=== PATIENT | male | born 1970 | race Caucasian/White ===

== ENCOUNTER 2018-09-03 07:40 | Observation (INO) ==
[2018-09-03 07:49] VITALS: BMI 32.5
--- NOTE | 2018-09-03 07:50 | DR.AMS ---
HPI - Time Seen Time seen: 07:49 - PCP Primary Care Physician: UNKNOWN - Complaint Cheif Complaint Doctors Comments: Patient brought in by EMS with the complaint of slow heart rate with altered mental status after taking Symboxone and smoking meth. Patient states he has never done symboxone and a girl told him he should try it and it and he took a quarter of a stripe of symboxone. States he smokes meth 2-3 time week. States he is a patient of Dr. Russell and he was not trying to kill himself. He denies tobacco or alcohol use. He denies chest pain, SOB, nausea or vomiting. He denies head trauma or LOC. EMS states the patient was i n bed when they arrived. States patient wakes up with nitroglycerin and is alert and talkative. Chief Complaint:: EMS RESPONDS TO A CALL FOR C/O LOW HEART RATE, AMS. EMS STATES THAT PT. HAD TAKEN A SUBOXONE AND HAD ADMITTED TO SMOKING METHAMPHETAMINE, LAST USE @ 0200. PT. IS LETHARGIC BUT WILL RESPOND TO VERBAL STIMULI. SPEECH IS MUMBLED. PT. STATES HE USES METH EVERY "NOW AND THEN." - Reviewed Nurses Notes Reviewed: Yes - Source History Provided: Patient, EMS - Mode of Arrival Mode of Arrival: EMS - Timing Onset of Chief Complaint: 09/03/18 Came On: Gradually Symptoms: Unchanged Symptom Onset: Unknown - Duration Duration: Constant Duration: Hours - Quality Quality: Decreased Alertness - Severity Severity: Moderate - Context Recent: Drug Use History Of: None - Associated Signs and Symptoms Associated Signs and Symptoms: Change in Behavior PMH - PMH Past Medical History: No Past Surgical History: No Surgical History: Unknown - Family History History of Family Medical Conditions: No - Social History Does patient currently use any type of tobacco product: Yes Have you used tobacco products in the last 12 months: Yes Type of Tobacco Use: Cigarettes Does any household member use tobacco: Yes Alcohol Use: Other Do you use any recreational Drugs:: Yes Lives With: Significant Other Lives Where: Home - infectious screening In the last 2 months have you had wt loss of >10#?: NO Have you had fever, night sweats or hemotysis?: No Have you traveled outside the country in the last 6 months?: No Isolation: Standard ROS - Review of Systems Constitutional: No Symptoms Reported Eyes: No Symptoms Reported ENTM: No Symptoms Reported Respiratoy: No Symptoms Reported Cardiovascular: No Symptoms Reported. negative: See HPI, Chest Pain, Edema, Palpitations, Syncope, Cyanosis, Skin Mottling, Other Gastrointestinal/Abdominal: No Symptoms Reported. negative: See HPI, Abdominal Pain, Constipation, Diarrhea, Nausea, Vomiting, Food Intolerance, Other Genitourinary: No Symptoms Reported. negative: See HPI, Discharge, Dysuria, Frequency, Hematuria, Pain, Bleeding, Other Neurological: No Symptoms Reported Musculoskeletal: No Symptoms Reported Integumentary: No Symptoms Reported Hematologic/Lymphatic: No Symptoms Reported. negative: See HPI, Anemia, Blood Clots, Easy Bleeding, Easy Bruising, Swollen Glands, Lymphadenopathy, Other Endocrine: No Symptoms Reported Psychiatric: No Symptoms Reported. negative: See HPI, Anxiety, Depression, Hallucinations, Excessive crying, Suicidal, Other PE - General Limitations: No Limitations General Appearance: In No Apparent Distress, Lethargic - Head Head Exam: Normal Inspection, Atraumatic, Normocephalic Head Exam Physical: negative: Laceration, Abrasion, Contusion, Hematoma, Raccoon Eyes, Barlow's Sign, Tenderness of Temporal Artery, CSF Rhinorrhea, CSF Otorrhea, Other - Eyes Eye exam: PERRL, EOMI, Miosis. negative: Normal Appearance, Scleral Icterus, Conjunctival Injection, Nystagmus, Mydrasis, Periorbital Swelling, Periorbital Tenderness, Other Pupils: Regular, Round: Left, Reactive: Left (slight), Size: Bilateral (pin point), Size: Bilateral (pin point) - ENT ENT Exam: Normal Exam, Normal Oropharynx, Normal External Ear Exam, Mucous Membranes Moist, TM's Normal Bilaterally External Ear Exam: Normal External Inspection TM/Canal Exam: Bilateral Normal Nose Exam: Normal Nose Exam Mouth Exam: Normal Inspection. negative: Drooling, Trismus, Lip Swelling, Tongue Elevation, Tongue Swelling, Laceration, Other Throat Exam: Normal Inspection. negative: Tonsillar Erythema, Tonsillomegaly, Tonsillar Exudate, R Peritonsillar Mass, L Peritonsillar Mass, Muffled Voice, Other - Neck Neck Exam: Normal Inspection, Full ROM, Trachea Midline. negative: Tenderness, Meningismus, Lymphadenopathy, Thyromegaly, Other - Chest Chest Inspection: Normal Inspection, Symmetric Chest Wall Rise - Respiratory Respiratory Exam: Normal Lung Sounds Bilat Respiratory Exam: Bilateral Clear to Auscultation - Cardiovascular Cardiovascular Exam: Regular Rate, Normal Rhythm, Bradycardia, Normal Heart Sounds - Abdominal Exam Abdominal Exam: Normal Inspection, Normal Bowel Sounds, Soft. negative: Distention, Tenderness, Guarding, Rebound, Rigidity, Dimnished Bowel Sounds, Hyperactive Bowel Sounds, Hypoactive Bowel Sounds, Organomegaly, Trauma, Incision, Ascites, Mass, Bruit, Pulsatile Mass, Hernia, Other Abdominal Tenderness: negative: RUQ, RLQ, LUQ, LLQ, Epigastrium, Suprapubic, Diffuse, Mild, Moderate, Severe, Other - Extremities Extremities Exam: Normal Inspection, Full ROM, Normal Capillary Refill. negative: Tenderness, Edema, Joint Swelling, Calf Tenderness, Other - Back Back Exam: Normal Inspection, Full ROM. negative: Tenderness, (R) CVA Tenderness, (L) CVA Tenderness, Muscle Spasm, Paraspinal Tenderness, Vertebral Tenderness, Rashes, (R) Sciatic Notch Tenderness, (L) Sciatic Notch Tendern, (R) Straight Leg Raise, (L) Straight Leg Raise, Other - Neurological Neurological Exam: Oriented X3, CN II-XII Intact, Reflexes Normal. negative: Alert (lethargic), Normal Gait (gait not tested) Patient Oriented To: Person, Place, Time Speech: Fluid Speech Cranial Nerve Exam: EOM Function (II, III, IV, ): Normal, Facial Sensation (V): Normal, Facial Palsy (VII): Normal, Gag reflex (XI): Normal, Spinal Accessory Function (XI): Normal, Tongue Deviation: Normal Cerebellar Function: negative: Normal Gait (gait not tested) Motor Strength - LUE: 5/5 Motor Strength - RUE: 5/5 Motor Strength - LLE: 5/5 Upper Motor Neuron Exam: Babinski Sign: Normal Sensory Exam Upper Extremity: Light Touch: Normal DTR: bicep (L): 2+, bicep (R): 2+, Patellar (L): 2+, patellar (R): 2+ - Psychological Psychiatric Exam: Normal Mood. negative: Normal Affect (patient lethargic), Depressed, Agitated, Homicidal Ideation, Suicidal Ideation Expanded Psychiatric Exam: Poor Eye Contact (patient lethargic) - Skin Skin Exam: Warm, Dry, Intact, Normal Color - Vitals Vital Signs: Temp Pulse Pulse Resp BP BP Pulse Ox 09/03/18 12:22 53 L 10 L 166/89 95 09/03/18 12:00 51 L 13 173/86 95 09/03/18 11:20 53 L 12 166/92 97 09/03/18 11:00 50 L 13 155/80 97 09/03/18 10:00 50 L 16 171/99 99 09/03/18 09:20 51 L 12 168/94 99 09/03/18 09:00 51 L 173/96 09/03/18 08:40 52 L 12 155/96 100 09/03/18 08:05 47 L 17 146/78 96 09/03/18 07:42 97 F L 58 L 25 H 167/90 98 Course - Consultation Called: 12:29 Call Returned: 12:29 (Dr. Barrera to admit) - Education/Counseling Education/Counseling: Patient, Family Educated On: Treatment, Diagnosis, Needs for Follow Up ROR - Labs Reviewed Laboratory Results Reviewed?: Yes (All labs and x-ray results reviewed and discussed with pataient) Result Diagrams: 09/03/18 07:58 09/03/18 07:58 - XRAY XRAY Interpreted by: Radiologist (CXR: No acute cardiopulmonary disease.) - EKG Rate: 49 [place]: Normal Rhythm: SB Block: None Hypertrophy: LVH ST: Normal - Labs Reviewed Laboratory: WBC 7.1 X10^3/uL (3.6-10.0) 09/03/18 07:58 RBC 4.71 X10^6/uL (4.7-6.0) 09/03/18 07:58 Hgb 13.9 g/dL (13.5-18.0) 09/03/18 07:58 Hct 40.7 % (42.0-54.0) L 09/03/18 07:58 MCV 86.4 fL (80.0-100.0) 09/03/18 07:58 MCH 29.5 pg (27.0-34.0) 09/03/18 07:58 MCHC 34.1 g/dL (33.0-35.0) 09/03/18 07:58 RDW 14.5 % (11.6-16.5) 09/03/18 07:58 Plt Count 206 X10^3/uL (150.0-450.0) 09/03/18 07:58 MPV 8.3 fL (7.4-11.0) 09/03/18 07:58 Neut % (Auto) 65.0 % (42.0-75.0) 09/03/18 07:58 Lymph % (Auto) 20.9 % (21.0-51.0) L 09/03/18 07:58 Harper % (Auto) 10.7 % (0.0-13.0) 09/03/18 07:58 Eos % (Auto) 2.7 % (0.9-2.9) 09/03/18 07:58 Baso % (Auto) 0.7 % (0.2-1.0) 09/03/18 07:58 Neut # (Auto) 4.6 x10^3/uL (2.2-4.8) 09/03/18 07:58 Lymph # (Auto) 1.5 X10^3/uL (1.3-2.9) 09/03/18 07:58 Harper # (Auto) 0.8 x10^3/uL (0.3-0.8) 09/03/18 07:58 Eos # (Auto) 0.2 x10^3/uL (0.0-0.2) 09/03/18 07:58 Baso # (Auto) 0.0 X10^3/uL (0.0-0.1) 09/03/18 07:58 Absolute Nucleated RBC 0.0 /100WBC 09/03/18 07:58 INR Target Range - 09/03/18 07:58 INR 0.99 (0.8-1.3) 09/03/18 07:58 APTT 30.8 SECONDS (22.9-36.5) 09/03/18 07:58 PTT Comment - 09/03/18 07:58 D-Dimer < 100 ng/mL (0-400) 09/03/18 07:58 Sodium 140 mmol/L (136-145) 09/03/18 07:58 Corrected Sodium 141 mmol/L (136-145) 09/03/18 07:58 Potassium 3.6 mmol/L (3.5-5.1) 09/03/18 07:58 Chloride 104 mmol/L (98-107) 09/03/18 07:58 Carbon Dioxide 28.0 mmol/L (21-32) 09/03/18 07:58 BUN 12 mg/dL (7-18) 09/03/18 07:58 Creatinine 1.11 mg/dL (0.70-1.30) 09/03/18 07:58 Est GFR (MDRD) Af Amer > 60 (>60) 09/03/18 07:58 Est GFR (MDRD) Non-Af > 60 (>60) 09/03/18 07:58 Glucose 126 mg/dL (65-99) H 09/03/18 07:58 Calcium 8.5 mg/dL (8.5-10.1) 09/03/18 07:58 Corrected Calcium TNP 09/03/18 07:58 Magnesium 2.1 mg/dL (1.7-2.9) 09/03/18 07:58 Total Bilirubin 0.20 mg/dL (0.2-1.0) 09/03/18 07:58 AST 19 Units/L (15-37) 09/03/18 07:58 ALT 28 Units/L (12-78) 09/03/18 07:58 Alkaline Phosphatase 80 Units/L (46-116) 09/03/18 07:58 Creatine Kinase 136 Units/L (39-308) 09/03/18 07:58 CK-MB (CK-2) 3.6 ng/mL (0-4.0) 09/03/18 07:58 CK/CKMB % Calc 2.7 % (<4) 09/03/18 07:58 Troponin I < 0.02 ng/mL (0-1.5) 09/03/18 07:58 Total Protein 7.4 g/dL (6.4-8.2) 09/03/18 07:58 Albumin 3.7 g/dL (3.4-5.0) 09/03/18 07:58 Globulin 3.7 g/dL (2.5-4.5) 09/03/18 07:58 Albumin/Globulin Ratio 1.0 Ratio (1.1-2.1) L 09/03/18 07:58 Specimen Type Random urine 09/03/18 10:39 Urine Color Yellow (YELLOW) 09/03/18 10:39 Urine Appearance Clear (CLEAR) 09/03/18 10:39 Urine pH 6.5 (5.0 - 8.0) 09/03/18 10:39 Ur Specific Joiner 1.020 (1.000-1.030) 09/03/18 10:39 Urine Protein Negative (NEGATIVE) 09/03/18 10:39 Urine Glucose (UA) Negative (NEGATIVE) 09/03/18 10:39 Urine Ketones Negative (NEGATIVE) 09/03/18 10:39 Urine Occult Blood Negative (NEGATIVE) 09/03/18 10:39 Urine Nitrite Negative (NEGATIVE) 09/03/18 10:39 Urine Bilirubin Negative (NEGATIVE) 09/03/18 10:39 Urine Urobilinogen Normal (NORMAL) 09/03/18 10:39 Ur Leukocyte Esterase 2+ (NEGATIVE) 09/03/18 10:39 Urine RBC None seen /HPF (NONE SEEN) 09/03/18 10:39 Urine WBC 3-5 /HPF (NONE SEEN) 09/03/18 10:39 Ur Squamous Epith Cells Rare /HPF (NEGATIVE) 09/03/18 10:39 Amorphous Sediment Trace /HPF (NEGATIVE) 09/03/18 10:39 Urine Bacteria Negative /HPF (NEGATIVE) 09/03/18 10:39 Ur Culture Indicated? No/not indicated 09/03/18 10:39 Urine Opiates Screen Negative (NEG=<300) 09/03/18 10:39 Urine Methadone Screen Negative (NEG=<300) 09/03/18 10:39 Ur Barbiturates Screen Negative (NEG=<200) 09/03/18 10:39 Ur Phencyclidine Scrn Negative (NEG=<25) 09/03/18 10:39 Ur Amphetamines Screen Positive (NEG=<1000) 09/03/18 10:39 U Benzodiazepines Scrn Negative (NEG=<200) 09/03/18 10:39 Urine Cocaine Screen Negative (NEG=<300) 09/03/18 10:39 U Marijuana (THC) Screen Negative (NEG=<50) 09/03/18 10:39 - Diagnosis Discharge Problem: Drug ingestion, Persistent sinus bradycardia, Hypoglycemia, Amphetamine abuse Altered mental status Qualifiers: Altered mental status type: unspecified Qualified Code(s): R41.82 - Altered mental status, unspecified - Discharge Plan Disposition: ADMITTED INPATIENT Condition: Stable - Follow ups/Referrals Follow ups/Referrals: NFD,None [Primary Care Provider] - 3 days - Instructions
[2018-09-03 08:07] LABS: BASOPHILS % (AUTO) 0.7 % (0.2-1.0); EOSINOPHILS # (AUTO) 0.2 x10^3/uL (0.0-0.2); EOSINOPHILS % (AUTO) 2.7 % (0.9-2.9); HEMATOCRIT 40.7 % (42.0-54.0); HEMOGLOBIN 13.9 g/dL (13.5-18.0); LYMPHOCYTES # (AUTO) 1.5 X10^3/uL (1.3-2.9); LYMPHOCYTES % (AUTO) 20.9 % (21.0-51.0); MEAN CORPUSCULAR HEMOGLOBIN 29.5 pg (27.0-34.0); MEAN CORPUSCULAR HGB CONC 34.1 g/dL (33.0-35.0); MEAN CORPUSCULAR VOLUME 86.4 fL (80.0-100.0); MEAN PLATELET VOLUME 8.3 fL (7.4-11.0); MONOCYTES # (AUTO) 0.8 x10^3/uL (0.3-0.8); MONOCYTES % (AUTO) 10.7 % (0.0-13.0); NEUTROPHILS # (AUTO) 4.6 x10^3/uL (2.2-4.8); PLATELET COUNT 206 X10^3/uL (150.0-450.0); RED BLOOD COUNT 4.71 X10^6/uL (4.7-6.0); RED CELL DISTRIBUTION WIDTH 14.5 % (11.6-16.5); WHITE BLOOD COUNT 7.1 X10^3/uL (3.6-10.0)
--- NOTE | 2018-09-03 08:17 | RAD ---
HISTORY: Cough, shortness of breath Study: Single-view of the chest Comparison: None Findings: The trachea is midline. The cardiac silhouette is at the upper limits of normal. No evidence of focal consolidation is appreciated. Numerous overlying leads are noted. IMPRESSION: No evidence of acute disease within the chest is appreciated. Reported By:
[2018-09-03 08:25] LABS: BLOOD UREA NITROGEN 12 mg/dL (7-18); CALCIUM 8.5 mg/dL (8.5-10.1); CHLORIDE 104 mmol/L (98-107); COR NA(FOR HYPERGLY) 141 mmol/L (136-145); CREATININE 1.11 mg/dL (0.70-1.30); SODIUM 140 mmol/L (136-145); TROPONIN I < 0.02 ng/mL (0-1.5); eGFR NON BLACK RACES > 60 (>60)
[2018-09-03 08:29] LABS: ALANINE AMINOTRANSFERASE 28 Units/L (12-78); ALBUMIN 3.7 g/dL (3.4-5.0); ALKALINE PHOSPHATASE 80 Units/L (46-116); ASPARTATE AMINO TRANSFERASE 19 Units/L (15-37); CKMB % 2.7 % (<4); CREATINE KINASE 136 Units/L (39-308); CREATINE KINASE MB 3.6 ng/mL (0-4.0); MAGNESIUM 2.1 mg/dL (1.7-2.9); TOTAL PROTEIN 7.4 g/dL (6.4-8.2)
[2018-09-03] MEDS: NS 1000 ML 1,000 ML IV SCH ×3 (08:46→22:37)
[2018-09-03] MEDS ORDERED: NARCAN INJ IVP ONE (09:26)
[2018-09-03] MEDS ORDERED: NARCAN INJ ONE (09:38)
[2018-09-03 11:01] LABS: BILIRUBIN,URINE NEGATIVE (NEGATIVE); BLOOD/HEMOGLOBIN,URINE NEGATIVE (NEGATIVE); GLUCOSE, URINE NEGATIVE (NEGATIVE); KETONES,URINE NEGATIVE (NEGATIVE); LEUKOCYTE ESTERASE ,URINE 2+ (NEGATIVE); NITRITES,URINE NEGATIVE (NEGATIVE); PH,URINE 6.5 (5.0 - 8.0); PROTEIN,URINE NEGATIVE (NEGATIVE); UROBILINOGEN,URINE NORMAL (NORMAL)
[2018-09-03 11:12] LABS: APPEARANCE,URINE CLEAR (CLEAR); COLOR,URINE YELLOW (YELLOW)
[2018-09-03 11:27] LABS: AMORPHOUS SEDIMENT,UR TRACE /HPF (NEGATIVE); BACTERIA,URINE NEGATIVE /HPF (NEGATIVE); RBC,URINE NONE SEEN /HPF (NONE SEEN); SQUAMOUS EPITHELIAL CELL,UR RARE /HPF (NEGATIVE)
[2018-09-03 13:34] LABS: CREATINE KINASE 112 Units/L (39-308); CREATINE KINASE MB 3.4 ng/mL (0-4.0); TROPONIN I < 0.02 ng/mL (0-1.5)
--- NOTE | 2018-09-03 15:02 | DR.H&P ---
H&P - History & Physical for Day of: H&P Date: 09/03/18 - Chief Complaint Chief Complaint: AMS - History of Present Illness History of Present Illness: Patient brought in by EMS with the complaint of slow heart rate with altered mental status after taking Symboxone and smoking meth. Patient states he has never done symboxone and a girl told him he should try it and it and he took a quarter of a stripe of symboxone. States he smokes meth 2- 3 time week. States he is a patient of Dr. Russell and he was not trying to kill himself. He denies tobacco or alcohol use. He denies chest pain, SOB, nausea or vomiting. He denies head trauma or LOC. EMS states the patient was in bed when they arrived. States patient wakes up with nitroglycerin and is alert and talkative. - Past Medical History Past Medical History: Hypertension, Seizures - Past Surgical History Surgical History: Unknown - Social History Does patient currently use any type of tobacco product: Yes Have you used tobacco products in the last 12 months: Yes Type of Tobacco Use: Cigarettes Does any household member use tobacco: Yes Alcohol Use: Other - Medications Home Medications: No Known Drug Allergies Allergy (Verified 09/03/18 07:42) CONTINUE taking the following medications Unobtainable 09/03/18 [History] - Review of Systems Constitutional: Weakness Eyes: No Symptoms Reported ENT: No Symptoms Reported Respiratory: Shortness of Breath Cardiovascular: Palpitations Gastrointestinal: No Symptoms Reported Genitourinary: No Symptoms Reported Musculoskeletal: No Symptoms Reported Skin: No Symptoms Reported Neurological: Weakness - Physical Exam Vital Signs: Temperature 97 F Pulse Rate [Apical] 51 Pulse Rate 58 Respiratory Rate 12 Blood Pressure [Left Arm] 183/97 Blood Pressure 167/90 O2 Sat by Pulse Oximetry 95 Oriented: Person Eyes: Normal Ear: Normal Nose: Normal Throat: Normal Respiratory: RLL Diminished, LLL Diminished Cardiovascular: Normal : Normal Auscultation: Bowel Sounds: Normal Palpation: Normal Tenderness: Normal Skin: Decreased Turgur Musculoskeletal: Normal Speech Pattern: Appropriate, Delayed - Assessment/Plan (1) Altered mental status Qualifiers: Altered mental status type: unspecified Qualified Code(s): R41.82 - Altered mental status, unspecified Status: Acute Plan: RELATED TO MEDICATION INGESTION. NEURO CHECKS. BP CONTROL, TELEMETRY. CARDIAC MONITORING. BP CONTROL (2) Drug ingestion Status: Acute (3) Persistent sinus bradycardia Status: Acute (4) Hypoglycemia Status: Acute (5) Amphetamine abuse Status: Acute - Allergies Allergies/Adverse Reactions: Allergies Allergy/AdvReac Type Severity Reaction Status Date / Time No Known Drug Allergies Allergy Verified 09/03/18 07:42
[2018-09-03 19:14] LABS: CKMB % 3.3 % (<4); CREATINE KINASE 98 Units/L (39-308); CREATINE KINASE MB 3.2 ng/mL (0-4.0); TROPONIN I < 0.02 ng/mL (0-1.5)
[2018-09-04 01:42] LABS: CKMB % 3.3 % (<4); CREATINE KINASE 88 Units/L (39-308); CREATINE KINASE MB 2.9 ng/mL (0-4.0); TROPONIN I < 0.02 ng/mL (0-1.5)
[2018-09-04] MEDS: NS 1000 ML 1,000 ML IV SCH (03:12)
[2018-09-04 05:26] LABS: BASOPHILS # (AUTO) 0.1 X10^3/uL (0.0-0.1); BASOPHILS % (AUTO) 0.7 % (0.2-1.0); EOSINOPHILS # (AUTO) 0.5 x10^3/uL (0.0-0.2); EOSINOPHILS % (AUTO) 5.2 % (0.9-2.9); HEMATOCRIT 42.7 % (42.0-54.0); HEMOGLOBIN 14.6 g/dL (13.5-18.0); LYMPHOCYTES # (AUTO) 1.5 X10^3/uL (1.3-2.9); LYMPHOCYTES % (AUTO) 16.8 % (21.0-51.0); MEAN CORPUSCULAR HEMOGLOBIN 29.7 pg (27.0-34.0); MEAN CORPUSCULAR HGB CONC 34.1 g/dL (33.0-35.0); MEAN CORPUSCULAR VOLUME 87.2 fL (80.0-100.0); MEAN PLATELET VOLUME 9.4 fL (7.4-11.0); MONOCYTES # (AUTO) 0.7 x10^3/uL (0.3-0.8); MONOCYTES % (AUTO) 8.6 % (0.0-13.0); NEUTROPHILS % (AUTO) 68.7 % (42.0-75.0); PLATELET COUNT 203 X10^3/uL (150.0-450.0); RED CELL DISTRIBUTION WIDTH 14.4 % (11.6-16.5); WHITE BLOOD COUNT 8.7 X10^3/uL (3.6-10.0)
[2018-09-04 05:39] LABS: ALANINE AMINOTRANSFERASE 24 Units/L (12-78); ALBUMIN 3.2 g/dL (3.4-5.0); ALKALINE PHOSPHATASE 79 Units/L (46-116); ASPARTATE AMINO TRANSFERASE 16 Units/L (15-37); BLOOD UREA NITROGEN 11 mg/dL (7-18); CALCIUM 8.3 mg/dL (8.5-10.1); CARBON DIOXIDE 28.5 mmol/L (21-32); CHLORIDE 103 mmol/L (98-107); CHOL/HDL RATIO 3.9 (0.0-5.0); CHOLESTEROL 142 mg/dL (0-200); COR CA(FOR HYPOALB) 8.9 mg/dL (8.5-10.1); COR NA(FOR HYPERGLY) 139 mmol/L (136-145); CREATININE 0.86 mg/dL (0.70-1.30); HDL CHOLESTEROL 36 mg/dL (40-60); SODIUM 139 mmol/L (136-145); TOTAL PROTEIN 6.8 g/dL (6.4-8.2); TRIGLYCERIDES 172 mg/dL (0-150); eGFR NON BLACK RACES > 60 (>60)
[2018-09-04] MEDS ORDERED: PROTONIX INJ 40 MG VIAL IVP SCH (09:00)
[2018-09-04 09:10] VITALS: BP 144/80
== END 2018-09-04 12:40 | disposition home or self-care (01) ==
LOC: MED/SURG 07:40 → ER 07:40 → MED/SURG 13:56
PROVIDERS: ADMIT Internal Medicine; ATTEND Internal Medicine
DX: T40.4X1A Poisoning by other synthetic narcotics, accidental (unintentional), initial encounter; R94.31 Abnormal electrocardiogram [ECG] [EKG]; I10 Essential (primary) hypertension; R00.1 Bradycardia, unspecified; E11.649 Type 2 diabetes mellitus with hypoglycemia without coma; X58.XXXA Exposure to other specified factors, initial encounter; T43.621A Poisoning by amphetamines, accidental (unintentional), initial encounter; R41.82 Altered mental status, unspecified; F15.10 Other stimulant abuse, uncomplicated
CPT/HCPCS: 36415; 71010; 71045; 80053; 80061; 80307; 81001; 82550; 82553; 83735; 84484; 85025; 85378; 85610; 85730; 93005; 94760; 96365; 96367; 96374; 99284; C9113; G0378; G0434; J2310; J7030